=== PATIENT | male | born 1990 | race American Indian/Alaskan Native ===

== ENCOUNTER 2018-02-14 20:00 | Emergency (ER) | payer OTHER ==
[~2018-02-14] VITALS: Ht 170.2 cm; Wt 70.3 kg
[2018-02-14] MEDS ORDERED: PENICILLIN V P500 MG PO (20:42)
== END 2018-02-14 20:58 | disposition home or self-care (01) ==
LOC: ED 20:00
DX: S60.221A Contusion of right hand, initial encounter (principal); K04.7 Periapical abscess without sinus; Z88.6 Allergy status to analgesic agent; W23.0XXA Caught, crushed, jammed, or pinched between moving objects, initial encounter
CPT/HCPCS: 73130; 99283